=== PATIENT | male | born 1980 | race Caucasian/White ===

== ENCOUNTER 2017-08-13 11:18 | Outpatient (CLI) | payer OTHER | END 2017-08-13 11:19 | disposition EMS.NT | LOC: EMS 11:18 | PROVIDERS: ATTEND Surgery | DX: M54.2 Cervicalgia (principal); S09.90XA Unspecified injury of head, initial encounter; V57.5XXA Driver of pick-up truck or van injured in collision with fixed or stationary object in traffic accident, initial encounter; Y92.410 Unspecified street and highway as the place of occurrence of the external cause; Y92.89 Other specified places as the place of occurrence of the external cause ==

== ENCOUNTER 2018-09-25 17:29 | Outpatient (CLI) | payer OTHER ==
--- NOTE | 2018-09-25 20:14 | XRAY Report ---
Reason: ABD FOR BODY Procedure Date: 09/25/2018 Accession Number: [id number] / [id number] Procedure: XR - Abdomen Acute CPT Code: FULL RESULT: EXAM: ABDOMINAL SERIES AND PA CHEST EXAM DATE: 09/25/2018 05:47 PM. CLINICAL HISTORY: ABD FOR BODY. COMPARISON: None. TECHNIQUE: 2 views abdomen and 1 view chest. FINDINGS: CHEST: Lungs/Pleura: Clear. No effusion or pneumothorax. Mediastinum: Within exam limitations, cardiomediastinal contour is normal. ABDOMEN: Bowel Gas Pattern: Scattered collections of bowel gas with no focal dilation. Small amount of stool. No apparent foreign body. Free Air: None. Other: Spina bifida occulta of L5. 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 IMPRESSION: Unremarkable bowel gas pattern. No definite foreign body. RADIA
== END 2018-09-25 17:30 | disposition home or self-care (01) ==
LOC: DI 17:29
PROVIDERS: ATTEND Emergency Medicine
DX: S30.851A Superficial foreign body of abdominal wall, initial encounter (principal)
CPT/HCPCS: 74022

== ENCOUNTER 2020-03-12 07:02 | Emergency (ER) | payer OTHER ==
[2020-03-12] MEDS ORDERED: PROPARACAINE 0.5% OPHTH DROPS 15 ML RIGHTEYE STA (07:27)
[2020-03-12] MEDS ORDERED: NEOMYCIN/POLYMYX/DEXAMETH OPHTH DROPS 5 ML LEFTEYE STA (07:47)
--- NOTE | 2020-03-12 09:03 | ED Physician Documentation ---
PD HPI OPHTHO - Stated complaint Stated Complaint: FB LT EYE - Chief complaint Chief Complaint: Heent - History obtained from History obtained from: Patient - History of Present Illness Timing - onset: Yesterday Timing - duration: Days (1) Timing - details: Abrupt onset, Still present Location: Left Quality / character: Sharp Associated symptoms: Redness, Tearing, FB sensation, Photophobia. 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 He continued to have some pain the pain got much worse throughout the night this morning he is unable to open his eye. He comes into the emergency department with a foreign body sensation in the left eye he does not have any decrease in his vision. He does have some photophobia associated with this. He did not have any blunt trauma to the eye.He has not had similar symptoms previously Review of Systems Constitutional: denies: Fever Eyes: reports: Photophobia, Irritation, Other (Foreign body sensation). denies: Decreased vision Nose: denies: Rhinorrhea / runny nose, Congestion Throat: denies: Oral lesions / sores Cardiac: denies: Chest pain / pressure Respiratory: denies: Dyspnea, Cough GI: denies: Vomiting PD PAST MEDICAL HISTORY - Past Medical History Past Medical History: No - Past Surgical History Past Surgical History: Yes General: Other Ortho: Other - Present Medications Home Medications: Ambulatory Orders Medication Instructions Recorded Confirmed Neomycin/Poly/Dex Ophth Drops 2 drops LEFTEYE QID #1 bottle 03/12/20 [Maxitrol Ophth Drops] - Allergies Allergies/Adverse Reactions: Allergies Allergy/AdvReac Type Severity Reaction Status Date / Time shellfish derived Allergy Unknown Verified 03/12/20 08:05 - Social History Does the pt smoke?: No Smoking Status: Never smoker Does the pt drink ETOH?: No Does the pt have substance abuse?: No PD ED PE NORMAL - Vitals Vital signs reviewed: Yes (Hypertension) - General General: Alert and oriented X 3, No acute distress, Well developed/nourished - HEENT HEENT: Atraumatic, PERRL, EOMI, Other (There is significant blepharospasm to the left side the patient is not able to open his eye initially at all. After we are able to provide adequate anesthesia to the eye there is a foreign body in the cornea in the left upper outer quadrant) Results - Vitals Vitals: Vital Signs - 24 hr 03/12/20 03/12/20 03/12/20 07:09 08:30 09:03 Temperature 36.3 C L Heart Rate 82 80 84 Respiratory 16 16 18 Rate Blood Pressure 141/82 H 128/70 114/82 H O2 Saturation 99 100 03/12/20 09:19 Temperature 36.8 C Heart Rate 106 H Respiratory 20 Rate Blood Pressure 124/80 O2 Saturation 100 Oxygen O2 Source Room air Procedures - FB removal FB location: Other (eye) FB removal preparation: Local anesthesia-specify (proparicaine) Removal method: Other (27 gauge needle and cotton tip swab) FB removal aftercare: Removed successfully (The patient had a difficult time cooperating but we were eventually able to do the procedure.) Departure - Departure Disposition: 01 Home, Self Care Clinical Impression: Corneal foreign body Qualifiers: Encounter type: initial encounter Laterality: left Qualified Code(s): T15.02XA - Foreign body in cornea, left eye, initial encounter Condition: Stable Instructions: ED Foreign Body Cornea Follow-Up: Tera Ross MD [Primary Care Provider] - Tera Smith MD [Provider Admit Priv/Credential] - Prescriptions: Neomycin/Poly/Dex Ophth Drops [Maxitrol Ophth Drops] 2 drops LEFTEYE QID #1 bottle Forms: Activity restrictions Discharge Date/Time: 03/12/20 09:20
[2020-03-12 09:20] VITALS: BP 124/80
== END 2020-03-12 09:20 | disposition home or self-care (01) ==
LOC: ED 07:02
DX: T15.02XA Foreign body in cornea, left eye, initial encounter (principal); X58.XXXA Exposure to other specified factors, initial encounter; Y93.89 Activity, other specified; Y99.0 Civilian activity done for income or pay
CPT/HCPCS: 65220; 99282; 99283; J3490